=== PATIENT | male | born 1990 | race Caucasian/White ===

== ENCOUNTER 2018-09-11 13:18 | Emergency (ER) | payer BC ==
[~2018-09-11] VITALS: Ht 190.5 cm; Wt 93.5 kg
[2018-09-11 13:59] VITALS: BP 122/75
--- NOTE | 2018-09-11 14:18 | NUR ---
FIRST CONTACT WITH PT. PT C/O NECK PAIN, RADIATING TO SHOULDERS. HAD CRICK IN NECK ABOUT A WEEK AGO. PUSHED DOWN FLIGHT OF STAIRS 3-4 DAYS AGO, HIT BACKSIDE ON DOOR. IBUPROFEN 400MG @ 0800. [place] [employer] ALREADY CONTACTED. PT'S AOX4. RESPS EVEN AND UNLABORED. AWAITING ORDERES.
--- NOTE | 2018-09-11 15:12 | NUR ---
Patient given discharge instructions and they have confirmed that they understand the instructions. Patient ambulatory with steady gait.
== END 2018-09-11 15:13 | disposition home or self-care (01) ==
LOC: ED 15:07
DX: S16.1XXA Strain of muscle, fascia and tendon at neck level, initial encounter (principal); W10.9XXA Fall (on) (from) unspecified stairs and steps, initial encounter; Y93.89 Activity, other specified; Y92.89 Other specified places as the place of occurrence of the external cause; Y99.8 Other external cause status
CPT/HCPCS: 72050; 99283